=== PATIENT | male | born 1955 | race Caucasian/White ===

== ENCOUNTER → 2017-03-09 | Outpatient (CLI) | payer BC ==
[~2017-03-09] MED LIST: CIPR-255 PO; HYDR-3419 PO
--- NOTE | 2017-03-09 14:00 | DIAGNOSTIC IMAGING REPORT ---
[facility] CLINICAL HISTORY: BENIGN PROSTATIC HYPERTROPHY WITH URINARY OBSTRUCT COMPARISON STUDY: 04/28/2016 FINDINGS: The renal shadows are partially obscured overlying bowel gas and fecal material. No definite calculi are evident. There is no pathologic bowel dilatation. IMPRESSION: No calculi identified on conventional radiographic imaging Electronically signed by: Mook Duran M.D. 03/09/2017 1:58 PM Dictated Date/Time: 03/09/2017 1:57 PM
== END | disposition home or self-care (01) ==
LOC: C.RAD 13:40
PROVIDERS: ATTEND Urology
DX: N40.1 Benign prostatic hyperplasia with lower urinary tract symptoms (principal)